=== PATIENT | female | born 1985 | race Caucasian/White ===

== ENCOUNTER 2016-08-19 04:58 | Inpatient (IN) | payer OTHER ==
[2016-08-19] MEDS ORDERED: OXYTOCIN 20 UNITS in RINGER'S SOLUTION,LACTATED 1,000 ML IV ONE (05:11)
[2016-08-19] MEDS ORDERED: ceFAZolin SODIUM 2 GM in DEXTROSE 5 % IN WATER 100 ML IV ONE ×2 (05:11)
[2016-08-19] MEDS ORDERED: RINGER'S SOLUTION,LACTATED 1,000 ML IV PRN (05:11)
[2016-08-19] MEDS: RINGER'S SOLUTION,LACTATED 1,000 ML IV PRN ×2 (06:00→07:50)
[2016-08-19] MEDS ORDERED: ceFAZolin SODIUM 2 GM in DEXTROSE 5 % IN WATER 50 ML IV ONE ×2 (07:00)
--- NOTE | 2016-08-19 09:32 | OR ---
Operative Report - Dictated Report Narrative: Indication: 21-year-old 2 para 1 at 39 weeks with prior section desires repeat Pre Operative Diagnosis: 39 week intrauterine , prior section Post Operative Diagnosis: Same. Procedure: Repeat low transverse section. Surgeon: Holly Sullivan DO Supervisor Toy Assembly: none Anesthesia: Spinal, TAP block Estimated Blood Loss: 400 mL Urine Output: 100 mL clear urine Fluids Replacement: 1800 mL Drains: Tim to gravity Surgical Complications: None Specimens: Placenta to freezer Findings: Male in cephalic presentation born at 0823 08/19/2016 with Apgars 9 and 9 weighing 3676 g. Normal uterus, tubes, ovaries Technique: The patient was taken to the operating room and placed in dorsal supine position with a left lateral tilt after adequate spinal anesthesia. After sterile prep and drape using ChloraPrep, tim catheter inserted, SCDs placed, and 2 g of Ancef given preoperatively, the abdominal cavity was entered using sharp and blunt dissection. Two rolled laps were placed in the pericolic gutters on either side of the uterus. A transverse incision was made in the lower uterine segment and extended laterally and upwardly with digital traction. Clear fluid was noted upon amniotomy. The infant was delivered easily. The cord was clamped and cut and infant was handed off to awaiting peditrician. The placenta was allowed to deliver spontaneously. The uterus was cleared of clot and debris. Uterine incision was closed with 0 Vicryl using a running stitch. A second imbricating layer was placed. Excellent hemostasis was noted. The rolled laps were removed from the abdominal cavitiy. The peritoneum was closed with a running 3-0 Monocryl. The same suture was used to approximate the rectus and pyramidalis muscles. The fascia was closed with a running 0 Vicryl. The subcutaneous layer was closed with a running 3-0 Monocryl. The same suture was used to approximate the subdermal layer. The skin was closed with a running 4-0 Monocryl. Exophin adhesive dressing was applied to the incision. Sponge, lap, needle, and instrument count were correct x 2. Disposition: To post anesthesia care unit in good condition
[2016-08-19] MEDS ORDERED: ONDANSETRON HCL/PF 2 MG/ML VIAL IV PRN (09:35)
[2016-08-19] MEDS ORDERED: SENNOSIDES 8.6 MG TABLET PO PRN (09:35)
[2016-08-19] MEDS ORDERED: diphenhydrAMINE HCL 25 MG CAPSULE PO PRN (09:35)
[2016-08-19] MEDS ORDERED: SIMETHICONE 80 MG TAB.CHEW PO PRN (09:35)
[2016-08-19] MEDS ORDERED: BISACODYL 10 MG SUPP.RECT RC PRN (09:35)
[2016-08-19] MEDS ORDERED: hydrOXYzine PAMOATE 25 MG CAPSULE PO PRN (09:35)
[2016-08-19] MEDS ORDERED: RINGER'S SOLUTION,LACTATED 1,000 ML IV ONE (09:42)
[2016-08-19] MEDS ORDERED: KETOROLAC TROMETHAMINE 15 MG/ML VIAL IV PRN (09:46)
[2016-08-19] MEDS ORDERED: diphenhydrAMINE HCL 50 MG/ML VIAL IV PRN (09:46)
[2016-08-19] MEDS ORDERED: NALOXONE HCL 1 MG/1 ML SYRG IV PRN ×2 (09:46)
[2016-08-19] MEDS: oxyCODONE HCL/ACETAMINOPHEN 1 TAB TABLET PO PRN ×4 (11:08→22:53)
[2016-08-19] MEDS: ENOXAPARIN SODIUM 40 MG/0.4 ML SYRG SC SCH (17:12)
[2016-08-19] MEDS: IBUPROFEN 800 MG TABLET PO PRN (19:40)
[2016-08-19] MEDS: DOCUSATE SODIUM 100 MG CAPSULE PO SCH (20:57)
[2016-08-20] MEDS: oxyCODONE HCL/ACETAMINOPHEN 1 TAB TABLET PO PRN ×6 (01:58→20:48)
[2016-08-20] MEDS: IBUPROFEN 800 MG TABLET PO PRN ×4 (01:58→22:17)
[2016-08-20] MEDS: PRENATAL VITS96/IRON FUM/FOLIC 1 TAB TABLET PO SCH (08:15)
[2016-08-20] MEDS: DOCUSATE SODIUM 100 MG CAPSULE PO SCH ×2 (08:16→20:47)
--- NOTE | 2016-08-20 11:17 | PN ---
Subjective - Date and Time Seen Date: 08/20/16 Time: 11:14 Objective - Vitals Vitals: Last Vital Signs Temp 37.3 C 08/20/16 08:15 Pulse 86 08/20/16 08:15 Resp 18 08/20/16 08:15 BP 124/60 08/20/16 08:15 Pulse Ox 99 08/20/16 08:15 Patient denies complaints. Tolerating regular diet. Ambulating without difficulty. Pain well controlled. Lochia wnl. Abdomen - soft, appropriately tender Incision - clean, dry, intact Uterus - firm, at umbilicus -1 No calf tenderness Impression: Post op day #1 s/p repeat section. Plan: Continue routine post-operative/ care Cauti Physician Documentation - Urinary Catheter Management Urethral (Pete) Date of Insertion: 08/19/16 Time of Insertion: 08:05 Date of Removal: 08/19/16 Time of Removal: 20:30
[2016-08-20] MEDS: ENOXAPARIN SODIUM 40 MG/0.4 ML SYRG SC SCH (17:18)
[2016-08-21] MEDS: oxyCODONE HCL/ACETAMINOPHEN 1 TAB TABLET PO PRN ×5 (01:51→23:57)
[2016-08-21] MEDS: IBUPROFEN 800 MG TABLET PO PRN ×2 (05:07→13:45)
[2016-08-21] MEDS: DOCUSATE SODIUM 100 MG CAPSULE PO SCH ×2 (09:01→20:18)
[2016-08-21] MEDS: PRENATAL VITS96/IRON FUM/FOLIC 1 TAB TABLET PO SCH (09:01)
--- NOTE | 2016-08-21 13:45 | PN ---
Subjective - Date and Time Seen Date: 08/21/16 Time: 13:44 Objective - Vitals Vitals: Last Vital Signs Temp 36.6 C 08/21/16 10:23 Pulse 80 08/21/16 10:23 Resp 20 08/21/16 10:23 BP 116/66 08/21/16 10:23 Pulse Ox 98 08/21/16 10:23 Patient denies complaints. Ambulating well. Tolerating regular diet. Pain well controlled. Lochia wnl. Bottle feeding. Abdomen - soft, appropriately tender Incision - clean, dry, intact Uterus - firm, at umbilicus -2 No calf tenderness Impression: Post op day #2 s/p repeat section. Plan: Continue routine post-operative/ care Cauti Physician Documentation - Urinary Catheter Management Urethral (Pete) Date of Insertion: 08/19/16 Time of Insertion: 08:05 Date of Removal: 08/19/16 Time of Removal: 20:30
[2016-08-21] MEDS: ENOXAPARIN SODIUM 40 MG/0.4 ML SYRG SC SCH (17:55)
[2016-08-22] MEDS: oxyCODONE HCL/ACETAMINOPHEN 1 TAB TABLET PO PRN ×2 (04:40→08:04)
[2016-08-22] MEDS: DOCUSATE SODIUM 100 MG CAPSULE PO SCH (08:04)
[2016-08-22] MEDS: PRENATAL VITS96/IRON FUM/FOLIC 1 TAB TABLET PO SCH (08:05)
[2016-08-22] MEDS: IBUPROFEN 800 MG TABLET PO PRN (08:05)
--- NOTE | 2016-08-22 08:23 | PN ---
Subjective - Date and Time Seen Date: 08/22/16 Time: 08:22 Objective - Vitals Vitals: Last Vital Signs Temp 37.3 C 08/21/16 18:40 Pulse 72 08/21/16 18:40 Resp 20 08/21/16 18:40 BP 106/57 08/21/16 18:40 Pulse Ox 98 08/21/16 18:40 Patient denies complaints. Ambulating without difficulty. Tolerating regular diet. Pain well controlled. Lochia wnl. Bottle feeding Abdomen - soft, appropriately tender Incision - clean, dry, intact Uterus - firm, at umbilicus -3 No calf tenderness Impression: Post op day #3 s/p repeat section. Plan: Routine discharge instructions. Follow-up in office in 1-2 weeks for steroid injection of incision to prevent keloid formation Cauti Physician Documentation - Urinary Catheter Management Urethral (Pete) Date of Insertion: 08/19/16 Time of Insertion: 08:05 Date of Removal: 08/19/16 Time of Removal: 20:30
[2016-08-22 08:24] VITALS: BP 130/64
== END 2016-08-22 11:20 | disposition home or self-care (01) | DRG 766 ==
LOC: OB 04:58
PROVIDERS: ADMIT Obstetrics & Gynecology; ATTEND Obstetrics & Gynecology
PROC: 4A1HXCZ Monitoring of Products of Conception, Cardiac Rate, External Approach (ICD-10-PCS; 2016-08-19)
PROC: 10D00Z1 Extraction of Products of Conception, Low, Open Approach (ICD-10-PCS; principal; 2016-08-19 08:00)
DX: O34.211 Maternal care for low transverse scar from previous cesarean delivery (principal); O99.02 Anemia complicating childbirth; D64.9 Anemia, unspecified; L91.0 Hypertrophic scar; O99.89 Other specified diseases and conditions complicating pregnancy, childbirth and the puerperium; R73.03 Prediabetes; Z3A.39 39 weeks gestation of pregnancy; Z37.0 Single live birth; Z79.82 Long term (current) use of aspirin